=== PATIENT | male | born 1995 | race Caucasian/White ===

== ENCOUNTER 2017-09-07 18:23 | Emergency (ER) | payer BC ==
[2017-09-07 18:36] VITALS: BP 118/81
--- NOTE | 2017-09-07 20:17 | EDPHY ---
H & P Stated Complaint: MED REFILL PSYCH/SHIVERING, REFLUX, EMOTIONAL Time Seen by Provider: 09/07/17 18:40 HPI/ROS: Chief complaint: Medication refill History of present illness: This is a 22-year-old male, accompanied by his parents to the emergency department requesting a refill of his psychiatric medications. Patient is visiting from [place] for his brother's graduation with his parents. He forgot his medications back home. He has a history of anxiety, attention deficit hyperactivity disorder and Tourette's. His medications include Adderall, 20 mg in the morning, sertraline, 200 mg at night , Intuniv, 3 mg extended release at night, omeprazole and Benadryl. He is not taking his prescription medicines for 3 days. He is feeling anxious and shaky. He is supposed to drive back with his parents to [place] tomorrow. He denies other complaints. No SI or HI. Review of systems: A 10 point review of systems was obtained and other than described above was negative - Personal History Current Tetanus Diphtheria and Acellular Pertussis (TDAP): Yes - Medical/Surgical History Hx Asthma: No Hx Chronic Respiratory Disease: No Hx Diabetes: No Hx Cardiac Disease: No Hx Renal Disease: No Hx Cirrhosis: No Hx Alcoholism: No Hx HIV/AIDS: No Hx Splenectomy or Spleen Trauma: No Other PMH: ADHD, TOURETTES, ANXIETY - Social History Smoking Status: Never smoked - Physical Exam Exam: General Appearance: Alert and no distress. Eyes: Pupils equal and round no injection. Respiratory: Chest is non tender, lungs are clear to auscultation. Cardiac: regular rate and rhythm Gastrointestinal: Abdomen is soft and non tender, no masses, bowel sounds normal. Musculoskeletal: Neck is supple and non tender. Extremities have full range of motion and are non tender. Skin: No rashes or lesions. Neurological: Alert and oriented x4. Cranial nerves 2-12 grossly intact. Strength and sensation intact and symmetrical. Constitutional: Initial Vital Signs Temperature (C) 36.9 C 09/07/17 18:33 Heart Rate 66 09/07/17 18:33 Respiratory Rate 16 09/07/17 18:33 Blood Pressure 118/81 H 09/07/17 18:33 O2 Sat (%) 99 09/07/17 18:33 O2 Delivery Mode Room Air Allergies/Adverse Reactions: No Known Allergies Allergy (Unverified 09/07/17 18:32) Home Medications: Medication Instructions Recorded Adderall 10 MG (*) 09/07/17 Amphet Asp and D/Amphet [Adderall 20 mg PO DAILY 7 Days tab 09/07/17 20 mg (*)] INTUNIV 09/07/17 Sertraline HCl 09/07/17 Sertraline HCl 200 mg PO HS 7 Days tablet 09/07/17 guanFACINE HCL [INTUNIV] 3 mg PO HS 7 Days 09/07/17 Medical Decision Making ED Course/Re-evaluation: Patient seen under the supervision of my secondary supervising physician Dr. Nadia Dawn. Patient presents with his parents requesting a refill of his psychiatric medications. He is visiting from [place] for his brother's graduation here in [place]. He has been off of his medications for 3 days and is feeling unwell. I do believe patient should be placed back on his medications to prevent withdrawal symptoms and loss of control of his underlying psychiatric disorders. He is prescribed a 7 day course of his prescription medications. He is driving back with his parents to [place] tomorrow. They will be able to help him with any of his needs during this time. He is asked to follow up with his doctor when he returns home. If his symptoms worsen or new symptoms develop both his parents and him are instructed to go to the closest emergency room. Differential Diagnosis: Included but not limited to medication withdrawal, unlikely drug-seeking behavior - Data Points Medications Given: Discontinued Medications Pantoprazole Sodium (Protonix) 40 mg PO EDNOW ONE Stop: 09/07/17 20:40 Last Admin: 09/07/17 20:54 Dose: 40 mg Sertraline HCl (Zoloft) 200 mg PO EDNOW ONE Stop: 09/08/17 09:01 Last Admin: 09/07/17 20:54 Dose: 200 mg Departure - Departure Disposition: Home, Routine, Self-Care Clinical Impression: Medication refill Condition: Good Instructions: Medicine Refill (ED) Additional Instructions: Please follow-up with your doctor when he returns home to [place] next week Start taking medications again as prescribed If symptoms worsen or new symptoms develop return immediately to the closest emergency department Referrals: NONE *PRIMARY CARE P,. [Primary Care Provider] - As per Instructions [facility],. [Clinic] - As per Instructions Prescriptions: Amphet Asp and D/Amphet [Adderall 20 mg (*)] 20 mg PO DAILY 7 Days tab guanFACINE HCL [INTUNIV] 3 mg PO HS 7 Days Sertraline HCl 200 mg PO HS 7 Days tablet
[2017-09-07] MEDS ORDERED: PANTOPRAZOLE SODIUM 40 MG TAB PO ONE (20:39)
[2017-09-07] MEDS ORDERED: guanFACINE HCL 1 MG TAB PO SCH (21:00)
[2017-09-08] MEDS ORDERED: SERTRALINE HCL 100 MG TAB PO ONE (09:00)
== END 2017-09-07 20:55 | disposition home or self-care (01) ==
DX: Z76.0 Encounter for issue of repeat prescription (principal)